=== PATIENT | male | born 1990 | race Caucasian/White ===

== ENCOUNTER 2018-09-17 10:25 | Emergency (ER) | payer MEDICAID, SELFPAY ==
[2018-09-17] MEDS ORDERED: Ibuprofen 800 MG TAB ONE (11:00)
== END 2018-09-17 11:10 | disposition home or self-care (01) ==
LOC: MADERS 10:25
DX: S39.011A Strain of muscle, fascia and tendon of abdomen, initial encounter (principal); I10 Essential (primary) hypertension; Z87.891 Personal history of nicotine dependence; Z79.899 Other long term (current) drug therapy; X58.XXXA Exposure to other specified factors, initial encounter
CPT/HCPCS: 99283